=== PATIENT | male | born 1985 | race Hispanic/Latino ===

== ENCOUNTER 2017-01-09 12:18 | Emergency (ER) | payer SELFPAY ==
[2017-01-09 12:33] VITALS: BP 161/96; PULSE 83; RESP 18; TEMP 98.4; O2SAT 99
--- NOTE | 2017-01-09 12:48 | ED PDOC ---
Arrival/HPI - General Chief Complaint: Medical Clearance Time Seen by Provider: 01/09/17 12:39 Historian: Patient - History of Present Illness Time/Duration: 1 week Symptom Onset: Gradual Symptom Course: Unchanged Severity Level: Mild Associated Symptoms (Text): 01/09/17 12:45 Patient reports that he had sex with a new partner approximately 1 month ago and the condom broke. He has not had sex with the same person since then. For approximately one week he has 3 small lesions on the left shaft of his penis. Nontender. No itching. No erythema. He denies any discharge. Denies abdominal pain nausea vomiting or diarrhea. No dysuria frequency urgency or hematuria. He is concerned with venereal warts. He reports that he was vaccinated for HSV. Past Medical History - Provider Review Nursing Documentation Reviewed: Yes - Cardiac Hx Hypertension: Yes - Pulmonary Hx Respiratory Disorders: No - Neurological Hx Neurological Disorder: No - HEENT Hx HEENT Disorder: No - Renal Hx Renal Disorder: No - Endocrine/Metabolic Hx Endocrine Disorders: No - Hematological/Oncological Hx Blood Disorders: No - Integumentary Hx Dermatological Disorder: No - Musculoskeletal/Rheumatological Hx Musculoskeletal Disorders: No - Gastrointestinal Hx Gastrointestinal Disorders: No - Genitourinary/Gynecological Hx Genitourinary Disorders: No - Psychiatric Hx Psychophysiologic Disorder: No Hx Substance Use: No (past) - Anesthesia Hx Anesthesia: No Family/Social History - Physician Review Nursing Documentation Reviewed: Yes Family/Social History: Unknown Family HX Smoking Status: Former Smoker Hx Alcohol Use: No (past) Hx Substance Use: No (past) Allergies/Home Meds Allergies/Adverse Reactions: Allergies Unobtainable Allergy (Verified 01/09/17 12:33) Review of Systems - Physician Review All systems were reviewed & negative as marked: Yes Physical Exam Vital Signs Reviewed: Yes Vital Signs Temp Pulse Resp BP Pulse Ox 01/09/17 12:28 98.4 F 83 18 161/96 H 99 Temperature: Afebrile Blood Pressure: Hypertensive Pulse: Regular Respiratory Rate: Normal Appearance: Positive for: Well-Appearing, Non-Toxic, Comfortable Pain Distress: None Mental Status: Positive for: Alert and Oriented X 3 - Systems Exam Abdomen: Present: Normal Bowel Sounds. No: Tenderness, Distention, Peritoneal Signs, Rebound, Guarding Genitourinary Male: Present: Circumcised Penis, Lesions (3 small flesh colored lesions on the left side of the shaft of penis approximately 2-3 mm. Nontender. No erythema. Does not appear to be verruca. Not consistent with chancroid or chancre.). No: Normal External Genitalia, Penile Discharge, Testicle Tenderness , Penile Swelling, Masses, Erythema, Hernias, Testicle Swelling Disposition/Present on Arrival - Present on Arrival Any Indicators Present on Arrival: No History of DVT/PE: No History of Uncontrolled Diabetes: No Urinary Catheter: No History of Decub. Ulcer: No History Surgical Site Infection Following: None - Disposition Have Diagnosis and Disposition been Completed?: Yes Diagnosis: Herpes genitalis in men Disposition: HOME/ ROUTINE Disposition Time: 12:59 Patient Plan: Discharge Condition: GOOD Discharge Instructions (ExitCare): Genital Herpes Simplex (ED) Additional Instructions: Blood pressure check with PMD Prescriptions: Famciclovir [Famvir] 500 mg PO Q8 #21 tab Referrals: Jose Reynolds MD [Staff Provider] - Follow up with primary Forms: [employer] [facility] (Puerto Rican)
== END 2017-01-09 13:08 | disposition home or self-care (01) ==
LOC: MERGE 12:18 → ED 12:18
DX: A60.00 Herpesviral infection of urogenital system, unspecified (principal)

== ENCOUNTER 2017-02-20 14:53 | Emergency (ER) | payer OTHER ==
[2017-02-20 15:01] VITALS: BP 146/93; PULSE 94; RESP 16; TEMP 98.1; O2SAT 98
--- NOTE | 2017-02-20 15:04 | ED PDOC ---
Arrival/HPI - General Chief Complaint: Male Genitourinary Time Seen by Provider: 02/20/17 15:03 Historian: Patient - History of Present Illness Narrative History of Present Illness (Text): 02/20/17 15:03 31 year old male, no significant pmh, allergic to blood pressure medication, complaining of skin lesion on the shaft of the penis for 3 months. Pt. stated that he was seen here back in the december which he completed the course of antiviral which thought he had herpes after the unprotected sex about 3 months ago. Pt. stated that the skin lesion is dark brown color, skin tag, occasional itching with no pain, not itching now, no fever or chills, no night sweat, no other medical or psychological complaints. Past Medical History - Provider Review Nursing Documentation Reviewed: Yes - Cardiac Hx Hypertension: Yes - Pulmonary Hx Respiratory Disorders: No - Neurological Hx Neurological Disorder: No - HEENT Hx HEENT Disorder: No - Renal Hx Renal Disorder: No - Endocrine/Metabolic Hx Endocrine Disorders: No - Hematological/Oncological Hx Blood Disorders: No - Integumentary Hx Dermatological Disorder: No - Musculoskeletal/Rheumatological Hx Musculoskeletal Disorders: No - Gastrointestinal Hx Gastrointestinal Disorders: No - Genitourinary/Gynecological Hx Genitourinary Disorders: No - Psychiatric Hx Psychophysiologic Disorder: No Hx Substance Use: No - Surgical History Hx Cardiac Catheterization: Yes - Anesthesia Hx Anesthesia: Yes Family/Social History - Physician Review Nursing Documentation Reviewed: Yes Family/Social History: Unknown Family HX Smoking Status: Never Smoked Hx Alcohol Use: No (alcoholism) Hx Substance Use: No Allergies/Home Meds Allergies/Adverse Reactions: Allergies hbp pill Adverse Reaction (Uncoded 02/20/17 14:54) NAUSEA Home Medications: Home Meds Medication Instructions Recorded Confirmed No Known Home Med 02/20/17 02/20/17 Review of Systems - Review of Systems Constitutional: absent: Fatigue, Fevers Eyes: absent: Vision Changes ENT: absent: Hearing Changes Respiratory: absent: SOB, Cough Cardiovascular: absent: Chest Pain Gastrointestinal: absent: Abdominal Pain, Nausea, Vomiting Skin: Rash, Skin Lesions. absent: Pruritis, Laceration, Abscess, Ulcer, Cellulitis Neurological: absent: Headache, Dizziness, Focal Weakness, Speech Changes, Facial Droop Physical Exam Vital Signs Reviewed: Yes Vital Signs Temp Pulse Resp BP Pulse Ox 02/20/17 14:55 98.1 F 94 H 16 146/93 H 98 Temperature: Afebrile Blood Pressure: Hypertensive Pulse: Regular Respiratory Rate: Normal Appearance: Positive for: Well-Appearing, Non-Toxic, Comfortable Pain Distress: None Mental Status: Positive for: Alert and Oriented X 3 - Systems Exam Head: Present: Atraumatic, Normocephalic Pupils: Present: PERRL Extroacular Muscles: Present: EOMI Conjunctiva: Present: Normal Mouth: Present: Moist Mucous Membranes Neck: Present: Normal Range of Motion Respiratory/Chest: Present: Clear to Auscultation, Good Air Exchange. No: Respiratory Distress, Accessory Muscle Use Cardiovascular: Present: Regular Rate and Rhythm, Normal S1, S2. No: Murmurs Abdomen: Present: Normal Bowel Sounds. No: Tenderness, Distention, Peritoneal Signs Genitourinary Male: Present: Normal External Genitalia, Circumcised Penis, Lesions (visible dark pigmented, elevated skin tag noted on the penile shaft region, no vesicular or erythematous lesion. ). No: Penile Discharge, Testicle Tenderness, Penile Swelling, Erythema Back: Present: Normal Inspection Upper Extremity: Present: Normal Inspection. No: Cyanosis, Edema Lower Extremity: Present: Normal Inspection. No: Edema Neurological: Present: GCS=15, Speech Normal, Motor Func Grossly Intact, Gait Normal, Memory Normal Skin: Present: Warm, Dry, Normal Color. No: Rashes Psychiatric: Present: Alert, Oriented x 3, Normal Insight, Normal Concentration Medical Decision Making ED Course and Treatment: 02/20/17 15:13 -I explained to the patient that he should follow up with the urologist and duty manager for the biopsy and further evaluation about the rash. -Discharge home with education on use condomn in the future, avoid having sex without protection until this rash is fully diagnosed, follow up with the urologist and duty manager for the biopsy and further evaluation about the rash , return to the ER for any new or worsening signs or symptoms. - PA / SET UP AND LAY OUT INSPECTOR / Resident Statement MD/DO has reviewed & agrees with the documentation as recorded. Disposition/Present on Arrival - Present on Arrival Any Indicators Present on Arrival: No History of DVT/PE: No History of Uncontrolled Diabetes: No Urinary Catheter: No History of Decub. Ulcer: No History Surgical Site Infection Following: None - Disposition Have Diagnosis and Disposition been Completed?: Yes Diagnosis: Penile lesion Disposition: HOME/ ROUTINE Disposition Time: 15:16 Patient Plan: Discharge Condition: GOOD Additional Instructions: -Discharge home with education on use condomn in the future, avoid having sex without protection until this rash is fully diagnosed, follow up with the urologist and duty manager for the biopsy and further evaluation about the rash , return to the ER for any new or worsening signs or symptoms. Referrals: Berny Hauser MD [Staff Provider] - Follow up with primary Joseph Gaffney MD [Staff Provider] - Follow up with primary Forms: [employer] (Khmer), WORK NOTE
== END 2017-02-20 15:19 | disposition home or self-care (01) ==
LOC: ED 14:53
DX: N48.9 Disorder of penis, unspecified (principal); I10 Essential (primary) hypertension